=== PATIENT | female | born 1955 | race Caucasian/White ===

== ENCOUNTER 2020-06-07 17:19 | Inpatient (IN) | payer MEDICARE ==
[~2020-06-07] VITALS: Ht 152.4 cm; Wt 56.1 kg
--- NOTE | ~2020-06-07 | EMS ---
[address] [address] EMS Patient Care Report Name: ALYSA LANDRUM Room: [address] ADM IN [facility].#: [id number] Admission: 06/07/20 Attend Phys: Davi Lopez MD Discharge: Date of : 55 Report #: [id number] THIS REPORT FOR: //name// Report Transmitted: 06/08/2020 02:17 EMS Care Summary [facility] [place] Incident [id number] @ 06/07/2020 16:07 Incident Location [address] [place] [address] Patient ALYSA LANDRUM Female, 64 Years 1955 Patient Address [address] [place] [address] Patient History Multiple Sclerosis,Hypertension (HTN), Patient Allergies , Patient Medications , Baclofen, Hydrochlorothiazide (Hctz), Alprazolam, Tramadol, Chief Complaint Wound Disposition Transported No Lights/[place] Dispatch Reason Sick Person Transported To [facility] Narrative [facility] DISPATCHED TO STATED LOCATION FOR FEMALE PT, BED CONFINED, WOUNDS. ON ARRIVAL TO THE SCENE, WE WERE MET AT THE FRONT DOOR BY THE PT'S SON. HE LED US TO A BEDROOM AT THE REAR OF THE HOME. THE PT WAS FOUND SEATED IN A BED. HER WAS IN AN ELECTRIC WHEELCHAIR ON THE SIDE OF THE BED OPPOSITE FROM [address] [address] EMS Patient Care Report Name: ALYSA LANDRUM Room: [address] IN [facility]#: [id number] Admission: 06/07/20 Attend Phys: Davi Lopez MD Discharge: Date of : 55 Report #: [id number] WHERE THE PT WAS SEATED. PT ADVISED THAT SHE HAD NOTICED WOUNDS FORMING ON HER LEGS OVER THE PAST SEVERAL WEEKS, WORSENING UP TO 911 CONTACT. IT WAS NOTED THAT THE BED APPEARED TO HAVE PREVIOUSLY CAUGHT FIRE DUE TO A LIT CIGARETTE, WHICH THE PT CONFIRMED. PT ADVISED THAT HER FALLS ASLEEP WHILE SMOKING, RESULTING IN MULTIPLE BURN KILGORE ON THE BED, WELL THE CARPET SURROUNDING THE WHEELCHAIR. PT WAS MOVED ACROSS THE BED TO THE STAIRCHAIR, WHERE SHE WAS SECURED AND MOVED FROM THE HOUSE. SHE WAS THEN PLACED ON THE STRETCHER AND SECURED FOR TRANSPORT. PT WAS DIFFICULT TO ACCESS DUE TO CLUTTER AND GARBAGE ON THE BED, WELL THE FLOOR SURROUNDING HER SIDE OF THE BED. PT WAS PLACED ON THE STRETCHER, SECURED, AND LOADED FOR TRANSPORT. VITAL SIGNS AND INTERVENTIONS NOTED ELSEWHERE. PT INITIALLY REQUESTED TRANSPORT TO [facility] IN [place], BUT WE WERE PREPARING FOR TRANSPORT, WE HEARD THAT OTHER UNITS WERE BEING DIVERTED FROM THERE. THE PT WAS ADVISED OF THE SITUATION, AND ADVISED THAT TRANSPORT TO [facility] WAS SUITABLE. TRANSPORT WAS UNEVENTFUL, WITH NO CHANGES IN OVERALL CONDITION WHILE EN ROUTE. IN PERSON HANDOFF GIVEN TO THE RECEIVING NURSE INDICATED. PT CARE TRANSFERRED WITHOUT INCIDENT. THE ELDER ABUSE/NEGLECT HOTLINE WAS CONTACTED REGARDING THE LIVING CONDITIONS AND LACK OF CARE PROVIDED TO THE PT GIVEN HER DISABILITY, CONFIRMATION NUMBER [id number]. UNIT IN SERVICE. END OF REPORT ROCÍO CHUA [id number] Initial Vitals @16:16Pain: 08/28, @16:37SpO2: 95, @16:54SpO2: 99, @17:03SpO2: 98, @17:07SpO2: 99, @16:42 @16:38P: 120,R: 18,BP: 157/72, @16:54P: 116,R: 16,BP: 144/74, @17:03P: 113,R: 18,BP: 148/66, @16:38GCS: 15, @16:54GCS: 15, @17:03GCS: 15, Assessments @16:16MENTAL:SKIN:HEENT:LUNG SOUNDS:ABDOMEN:PELVIS//GI:EXTREMITIES:PULSE:NEURO: Impression Malaise Procedures @16:38 cc () Site: Other Peripheral (Not Listed)Response: UnchangedFailed@16:4212-Lead ECGResponse: [place] [address] EMS Patient Care Report Name: ALYSA LANDRUM Room: [address] IN [facility]#: [id number] Admission: 06/07/20 Attend Phys: Davi Lopez MD Discharge: Date of : 55 Report #: [id number] 16:03,Call Received 16:03,Dispatch Notified 16:03,Psap Call 16:07,Dispatched 16:07,En Route 16:14,On Scene 16:16,At Patient 16:16,BP: / M,PULSE: ,RR: R,SPO2: Ox,ETCO2: ,BG: ,PAIN: 3,GCS: , 16:37,BP: / M,PULSE: ,RR: R,SPO2: 95 Ox,ETCO2: ,BG: ,PAIN: ,GCS: , 16:38,BP: 157/72 M,PULSE: 120,RR: 18 R,SPO2: Ox,ETCO2: ,BG: ,PAIN: ,GCS: , 16:38,BP: / M,PULSE: ,RR: R,SPO2: Ox,ETCO2: ,BG: ,PAIN: ,GCS: 15, 16:38, cc Site: Other Peripheral (Not Listed),Response: UnchangedFailed, 16:42,12-Lead ECG,Response: UnchangedSucceeded, 16:42,BP: / M,PULSE: ,RR: R,SPO2: Ox,ETCO2: ,BG: ,PAIN: ,GCS: , 16:46,Depart Scene 16:54,BP: / M,PULSE: ,RR: R,SPO2: 99 Ox,ETCO2: ,BG: ,PAIN: ,GCS: , 16:54,BP: 144/74 M,PULSE: 116,RR: 16 R,SPO2: Ox,ETCO2: ,BG: ,PAIN: ,GCS: , 16:54,BP: / M,PULSE: ,RR: R,SPO2: Ox,ETCO2: ,BG: ,PAIN: ,GCS: 15, 17:03,BP: / M,PULSE: ,RR: R,SPO2: 98 Ox,ETCO2: ,BG: ,PAIN: ,GCS: , 17:03,BP: 148/66 M,PULSE: 113,RR: 18 R,SPO2: Ox,ETCO2: ,BG: ,PAIN: ,GCS: , 17:03,BP: / M,PULSE: ,RR: R,SPO2: Ox,ETCO2: ,BG: ,PAIN: ,GCS: 15, 17:07,BP: / M,PULSE: ,RR: R,SPO2: 99 Ox,ETCO2: ,BG: ,PAIN: ,GCS: , 17:16,At Destination 17:42,Call Closed Disclaimer v1.1 Copyright 2020 [employer] This EMS Care Summary contains data elements from the applicable legal record (which may be displayed differently). It is designed to provide pertinent information for the following purposes: continuity of care, clinical quality, and state data reporting. The complete legal record is available to ED staff and administrators of the receiving hospital in [employer]'s Patient Tracker. All data is provided "as is."
[2020-06-07 17:21] VITALS: BP 126/49
[2020-06-07] MEDS ORDERED: HYDROCHLOROTHIA25 M2 PO ×2 (17:30→21:08)
[2020-06-07] MEDS ORDERED: TRAMADOL 50 MG50 MG PO ×2 (17:31→21:09)
[2020-06-07] MEDS ORDERED: BACLOFEN 10MG T10 MG PO ×2 (17:31→21:08)
[2020-06-07] MEDS ORDERED: NORVASC 2.5 MG2.5 M1 PO ×2 (17:31→21:07)
[2020-06-07] MEDS ORDERED: XANAX 0.5 MG0.5 M1 PO (17:32)
[2020-06-07 18:32] LABS: HEMATOCRIT 40.3 % (37.0-47.0); HEMOGLOBIN 13.7 gm/dL (12.0-15.0); MCH 30.6 pg (26.0-34.0); NUCLEATED RBCS 0 /100WBC; PLATELET COUNT* 341 thou/uL (150-400)
[2020-06-07 18:39] LABS: MCHC 33.9 g/dL (28.0-37.0); MCV 90.2 fL (80.0-100.0); MPV 7.8 fl. (7.2-11.1); RBC 4.47 mil/uL (4.20-5.00); RDW-CV 13.6 % (10.5-14.5); WBC 7.6 thou/uL (4.0-11.0)
[2020-06-07 18:45] LABS: CALCIUM 9.8 mg/dL (8.5-10.1); CREATININE 0.8 mg/dL (0.6-1.3); POTASSIUM 3.3 mmol/L (3.5-5.1)
[2020-06-07 18:50] LABS: ALBUMIN 3.2 g/dL (3.4-5.0); TOTAL BILIRUBIN 0.6 mg/dL (<0.1-1.0); TOTAL PROTEIN 6.9 g/dL (6.4-8.2)
[2020-06-07 18:50] LABS: URINE BILIRUBIN NEGATIVE (Negative); URINE BLOOD 2+ (Negative); URINE CLARITY CLEAR; URINE COLOR YELLOW; URINE GLUCOSE-RANDOM NEGATIVE (Negative); URINE KETONES NEGATIVE (Negative); URINE LEUKOCYTES-REFLEX NEGATIVE (Negative); URINE NITRITE-REFLEX NEGATIVE (Negative); URINE PROTEIN NEGATIVE (Negative); URINE UROBILINOGEN 0.2 E.U./dl (0.2-1.0)
[2020-06-07 18:58] LABS: APTT 26.2 Seconds (25.0-31.3); PROTIME 10.3 Seconds (9.20-11.50)
[2020-06-07 18:59] LABS: SQUAMOUS >10 Many /LPF (0-3)
[2020-06-07 19:00] LABS: BACTERIA-REFLEX >30 Many /HPF (None Seen); CASTS None Seen /LPF (None Seen); CRYSTALS None Seen /LPF (None Seen); MUCUS None Seen strn/LPF (None Seen); URINE RBC 3-10 Few /HPF (0-2); URINE WBC-REFLEX 0-5 Rare /HPF (0-5)
[2020-06-07 19:10] LABS: ABSOLUTE EOSINOPHILS 0.3 thou/uL (0.0-0.7); ABSOLUTE MONOCYTES 0.7 thou/uL (0.0-1.2); ABSOLUTE NEUTROPHILS 4.6 thou/uL (1.6-8.1); PLATELET ESTIMATE ADEQUATE
[2020-06-07 20:40] VITALS: BP 133/55
--- NOTE | 2020-06-07 20:40 | NUR ---
PT ADMITTED TO FLOOR PER CART ACCOMPANIED BY ER STAFF WITH BELONGINGS. ORIENTED TO ROOM AND CALL LITE. PT MOVED PER SLIDING DEVICE FROM CART TO BED. YIN DRAINING YELLOW URINE. WOUNDS TO SACRUM, R ELBOW AND BILATERAL THIGHS. PT UNABLE TO MOVE BLE, MODERATE STRENGTH TO UPPER EXTREMITIES. PT CO GENERALIZED ACHES, SACRAL PAIN. HISTORY OBTIANED AND ASSESSMENT PERFORMED, SEE ADMIT NOTES. PICTURES TO BE TAKEN OF WOUNDS, PT POSITIONED FOR COMFORT WITH WEDGE OFF OF SACRUM AT THIS TIME. REQUESTING SNACK, GIVEN. WILL CONTINUE TO MONITOR AND PROVIDE CARES NEEDED. CALL LITE IN EASY REACH, BED ALARM ON FOR SAFETY.
[2020-06-07 20:47] VITALS: BP 131/49
[2020-06-07] MEDS ORDERED: ALPRAZOLAM XR3 MG PO (21:06)
[2020-06-07] MEDS ORDERED: XANAX 0.5 MG0.5 MG PO (21:10)
[2020-06-07] MEDS ORDERED: NEURONTIN300 MG PO ×2 (21:52→22:24)
[2020-06-07] MEDS ORDERED: VITAMIN D31250 MC1 PO (21:53)
[2020-06-08 04:22] LABS: HEMOGLOBIN 12.4 gm/dL (12.0-15.0); MCH 30.2 pg (26.0-34.0); MCHC 33.5 g/dL (28.0-37.0); MPV 7.5 fl. (7.2-11.1); RBC 4.11 mil/uL (4.20-5.00); RDW-CV 13.2 % (10.5-14.5); WBC 6.3 thou/uL (4.0-11.0)
[2020-06-08 04:44] LABS: CALCIUM 9.2 mg/dL (8.5-10.1); CREATININE 0.6 mg/dL (0.6-1.3); MAGNESIUM 1.6 mg/dL (1.8-2.4); POTASSIUM 3.7 mmol/L (3.5-5.1)
--- NOTE | 2020-06-08 04:57 | NUR ---
PT HAS SLEPT WELL SINCE SETTLING IN AFTER ADMIT. K REPLACED, AM LABS DRAWN. HOME MEDS RESTARTED AND GIVEN ORDERED. LAC IVF INFUSING PER PUMP. YIN DRAINING YELLOW URINE WITH SMALL AMOUNT BLOOD STREAK AT TIMES. TOLERATING FOOD AND FLUIDS AT HS. R ELBOW WOUND DRSG CDI. BUTTOCK WOUND CLEANSED AND REDRESSED AFTER ADMISSION ALSO. BRIAN THIGH WOUNDS EMIGDIO, PHOTOGRAPHS TAKEN. PT TURNED AND REPOSITIONED Q2 HOURS AND PRN FOR SKIN CARE AND COMFORT, HEELS ELEVATED OFF OF BED ON PILLOW. PT TAKES PILLS WHOLE WITH WATER. ABLE TO USE CALL LITE AND MAKE NEEDS KNOWN. CM TO CONSULT WELL WOUND CARE AND DR SANTIAGO. AOX4, PLEASANT.BEDREST.
[2020-06-08 07:40] VITALS: BP 120/58
--- NOTE | 2020-06-08 09:08 | NUR ---
CM SPOKE TO THE PT TO COMPLETE CM ASSESSMENT. PT A&O. PT INFORMS THAT SHE IS NORMALLY INDEPENDENT WITH ADL'S 'I SPONGE BATH AND DRESS MYSELF, BUT COULD USE A LITTLE MORE HELP AT HOME'. PT RESIDES AT HOME WITH SPOUSE AND SON. PT INFORMS THAT HER SON 'IS THERE AND CAN HELP US AT HOME. MY CANT REALLY HELP ME HE HAS A LOT OF PAIN'. PT HAS 0 HX OF HH. PT HAS 0 HX OF SNF, BUT INFORMS THAT HER MOTHER RESIDES AT [facility]. CM WILL REMAIN AVAILABLE TO ASSIST AND FOLLOW NEEDED.
[2020-06-08 15:52] VITALS: BP 132/65
--- NOTE | 2020-06-08 18:35 | NUR ---
PATIENT RESTING IN BED. PATIENT DENIES ANY PAIN. PATIENT HAS PRESSURE WOUNDS TO BUTTOCKS AND RIGHT ELBOW. PATIENT SEEN BY SURGERY THIS AFTERNOON. PATIENT HAD DRESSING TO WOUNDS CHANGED TODAY. PATIENT HAS BEEN REPOSTIONED WHILE IN BED. PATIENT HAS GOOD APPETTIE. PATIENT DENIES ANY NEEDS AT THIS TIME. CALL LIGHT WITHIN REACH.
[2020-06-08 20:00] VITALS: BP 140/66
--- NOTE | 2020-06-09 05:05 | NUR ---
PATIENT AWAKE UNTIL AROUND 2AM. PT TURNED Q2H PER PROTOCAL. PT GIVEN TORADOL AND BACLOFEN FOR MS PAIN. PT WITH YIN TO DEPENDENT DRAIN WITH YELLOW URINE. PT HAS DSG ON COCCYX AND RT ELBOW C/D/I. PT ALSO HAS WOUNDS ALL OVER LEGS OPEN TO AIR; NO OZING NOTED. PT WITH SALINE LOCK IN LT AC. FREQUENTLY USED ITEMS AND CALL LIGHT WITHIN REACH. SIDERAILS UPX3 AND BED ALARM ON. WILL CONTINUE TO MONITOR.
[2020-06-09 05:19] LABS: HEMATOCRIT 36.2 % (37.0-47.0); HEMOGLOBIN 12.1 gm/dL (12.0-15.0); MCH 30.1 pg (26.0-34.0); MCHC 33.6 g/dL (28.0-37.0); MCV 89.7 fL (80.0-100.0); RBC 4.03 mil/uL (4.20-5.00); RDW-CV 13.9 % (10.5-14.5); WBC 9.7 thou/uL (4.0-11.0)
[2020-06-09 05:30] LABS: ALBUMIN 2.6 g/dL (3.4-5.0); CALCIUM 9.1 mg/dL (8.5-10.1); CREATININE 0.6 mg/dL (0.6-1.3); MAGNESIUM 1.8 mg/dL (1.8-2.4); POTASSIUM 3.4 mmol/L (3.5-5.1); TOTAL BILIRUBIN 0.4 mg/dL (<0.1-1.0)
[2020-06-09 17:23] VITALS: BP 135/60
--- NOTE | 2020-06-09 18:46 | NUR ---
PATIENT CURRENTLY LYING IN BED RESTING. Q2 TURNS COMPLETED THIS SHIFT. PICTURES TAKEN OF PATIENT'S WOUNDS THAT WERE PRESENT UPON ADMISSION AND PLACED IN CHART. PATIENT HAS DENIED ANY NEW PAIN DURING SHIFT. CALL LIGHT AND FREQUENTLY USED ITEMS WITHIN REACH.
[2020-06-09 20:04] VITALS: BP 108/52
--- NOTE | 2020-06-10 05:09 | NUR ---
PT A&OX4, VSS ON ROOM AIR, URINARY CATHETER IN PLACE, PT TURNED Q2H, PT SLEEPING WELL. HOURLY ROUNDINGS COMPLETE, WILL CONTINUE TO MONITOR.
[2020-06-10 08:00] VITALS: BP 126/57
--- NOTE | 2020-06-10 15:09 | NUR ---
WOUND NURSE: PATIENT SEEN TO ADDRESS CIRCIFORM SKIN LESIONS PRESENT ON SACRAL AREA, BILATERAL LEGS, AND RIGHT ELBOW. PATIENT WITH 10+ CIRCIFORM LESIONS ALL APPROX 2MM THICK, RED NONGRANULATING TISSUE IN THE WOUND BEDS, YELLOW EXUDATE, NO PERIWOUND REDESS, WARMTH, OR INDURATION. SACRAL WOUND WITH 3 OPENINGS, ALL WITH RED GRANULATION TISSUE, SEROUSANGUINOUS DRAINAGE, NO PERIOWUND REDNESS, WARMTH, OR INDURATON. PATIENT REPORTING THAT THE LESIONS HAVE BEEN OCCURRING FOR THE PAST 2 MONTHS AND SEEM TO START BLISTERS THAT BREAK OPEN AND DRAIN. PATIENT ALSO WITH SOME SCARS ALSO NOTED. SACRAL WOUND MEASURES 5 X 8 X 0.2 CM. BLE WOUNDS VARY IN SIZE UP TO APPROX 1.5 CM DIAMETERA. CLEANSED SACRAL WOUND WITH SOAP AND WATER, RINSED, THEN PATTED DRY. APPLIED SKIN PREP TO PERIWOUND, THEN COVERED WITH AQUACEL AG AND SECURED IN PLACE USING SURESITE TRANSPARENT DRESSING. THIS WOUND IS VERY CLOSE TO ANAL ORIFACE MAKING A SEAL CHALLENGING. PATIENT IS AWAITING PHYSICIAN TO BIOPSY THE OTHER WOUNDS LATER TODAY, SO POSTPONED APPLYING DRESSINGS AT THIS TIME. RECOMMEND IODOSORB GEL TO EACH LESION, THEN COVERING WITH GAUZE OR BORDERED FOAM DRESSING, AND CHANGE DRESSINGS 3X/WEEK AND PRN. PATIENT INSTRUCTED ON MEASIURES TO PROMOTE HEALING AND PREVENT COMPLICATIONS. PATIENT STATES SHE UNDERSTANDS.
[2020-06-10 16:26] VITALS: BP 126/61
--- NOTE | 2020-06-10 19:54 | NUR ---
Pt remained A&O x4. Pt turned q2 hours. Pt given meds per AUG. Pt's wounds dressed by wound care nurse. Surgery in to do biopsy of sore on rt leg. Stitches in place. Pt tolerated well. Pt pleasant with staff. Fall precautions in place.
[2020-06-10 20:00] VITALS: BP 124/62
--- NOTE | 2020-06-11 06:06 | NUR ---
ASSUMED PATIENT CARE AT 1900. ALERT AND ORIENTED TIMES FOUR. CAN BE VERY NEEDY AT TIMES. MINOR COMPLAINTS OF PAIN, CONTROLLED WITH ORAL MEDICATION. IV PATENT TO FLUSHES. INVENTORY CONTROLLER AND HOURLY ROUNDING COMPLETED CHARTED.
[2020-06-11 06:18] LABS: HEPATITIS B SURFACE AG Negative (Negative)
--- NOTE | 2020-06-11 11:08 | NUR ---
WOUND NURSE: FOLLOWED UP WITH PATIENT THIS MORNING. PATIENT WAS SEEN BY SURGERY YESTERDAY PER HER NURSE, BRANT AND BX WAS PERFORMED. BLE WOUNDS HAD NOT BEEN DRESSED. PATIENTS WOUND WERE TREATED BY THIS NURSE A RESULT. THE DRESSING ON SACRUM WAS NOT INTACT SO REPLACED THIS AND ADDED FOAM LAYER UNDER THE TRANSPARENT FOR ADDED ABSORPTION. ALSO CHANGED THE DRESSING TO THE RIGHT ELBOW. THIS WAS TOLERATED WELL BY THE PATIENT.
--- NOTE | 2020-06-11 11:20 | NUR ---
DISCUSSED DISCHARGE PLANNING WITH PT. SHE SEEMED REALISTIC,SAYING I KNOW I NEED TO GO SOMEWHERE. MY AND SON CANNOT TAKE CARE OF ME AT HOME. SHE SAID HAS OSTEO ARTHRITIS AND CANNOT HELP HER MUCH. HE HAS A WALKER AND SCOOTER. HER 26 Y.O.SON LIVES WITH THEM. SHE SAID HE LIVES RENT FREE IN EXCHANGE FOR HELPING THEM. SHE SAID HE REALLY DOESN'T DO MUCH FOR THEM. GAVE HER A LIST OF FACILITIES THAT CONTRACT WITH HER INSURANCE. TOLD HER SHE WOULD GO SKILLED FIRST TO GET HER LEGS HEALED UP. SHE WANTS TO TALK WITH . CALL FROM [facility] [phone]. SHE HAD RECEIVED A HOTLINE CALL ON PT. SHE SAID WALKS BENT OVER, THERE IS NO WAY HE COULD ASSIST PT. BED WHERE PT.STAYS APPEARED IF THE MATTRESS CAUGHT FIRE. HER SAID HE HAS BEEN KNOW AT TIMES TO FALL SLEEP WITH A CIGARETTE IN HIS HAND. INFORMED HER ON POC TO DISCHARGE TO SNF. WILL UPDATE HER WITH NAME OF SNF WHEN KNOWN.
[2020-06-11 16:07] LABS: ANA INTERPRETATION Negative (())
[2020-06-11 16:24] VITALS: BP 109/49
--- NOTE | 2020-06-11 20:10 | NUR ---
Pt A&O x4 for entire shift. Pt pleasant with staff. Meds given per AUG. Pt given bed bath today. Pt's barlow removed and purewick in place instead. Pt turned Q2. Vital signs stable. Pt does express concern about going home. Pt states "no one at home can take care of me". Fall precautions in place.
--- NOTE | 2020-06-11 20:16 | NUR ---
Pt given ativan Q4 per AUG. Pt's breaths getting shallower. Pt's granddaughter in room for large portion of day and left around 1710. Pt's given updates via phone several times today. Pt at 1800. Pt pronounced by [address] Lopez notified. Pt's contacted. [facility] contacted. Pt does not qualify to be a donor. Charge nurse notified. Pt's deciding which home to use and will call back.
[2020-06-11 20:30] VITALS: BP 111/60
--- NOTE | 2020-06-12 06:15 | NUR ---
PATIENT HAS SLEPT WELL THROUGHOUT MOST OF THE NIGHT. VSS ON RA. MEDICATIONS GIVEN ORDERED AND CHARTED. PATIENT HAS REMAINED BEDREST. PURE WIK IN PLACE WITH YOKASTA COLORED URINE. DRESSING TO WOUNDS ARE C/D/I. PATIENT TURNED EVERY 2HRS. FALL PRECAUTIONS IN PLACE AND HOURLY ROUNDS MADE. WILL CONTINUE WITH PLAN OF CARE AND NURSING TO MONITOR.
[2020-06-12] MEDS ORDERED: XANAX 0.5 MG0.5 M1 PO (08:18)
[2020-06-12] MEDS ORDERED: METOPROLOL TART25 MG PO (08:18)
[2020-06-12] MEDS ORDERED: CEFUROXIME250 MG PO (08:18)
[2020-06-12] MEDS ORDERED: THERA M PLUS T1 EAC2 PO (08:18)
[2020-06-12] MEDS ORDERED: PHENAZOPYRIDIN100 M1 PO (08:18)
[2020-06-12] MEDS ORDERED: TRAMADOL 50 MG50 MG PO (08:18)
[2020-06-12] MEDS ORDERED: IBUPROFEN 200200 M1 PO (08:18)
[2020-06-12] MEDS ORDERED: MELATONIN5 M1 PO (08:18)
--- NOTE | 2020-06-12 14:00 | NUR ---
DISCUSSED FACILITIES WITH PT. SHE SAID WANTED TO SPEAK WITH CM. ATTEMTPED TO CALL HIM. LEFT VM FOR HIM TO RETURN MY CALL. MAY REFERRALS TO [facility]. TRIED TO SUGGEST FACILITIES THAT WOULD POSSIBLY HAVE LTC AVAILABILITY WHEN SNF TIME IS OVER.
[2020-06-12 16:46] VITALS: BP 117/50
--- NOTE | 2020-06-12 19:53 | NUR ---
Pt remained A&O x4 for entire shift. Pt is pleasant with staff. Pt's vital signs stable. Pt had 2 small BM today that were soft and formed. Pt complained of cramping in stomach and given prn medication. Pt losing appetite due to cramping in stomach stating that eating causes the cramping. Pt to be D/C to SNF when placement is found. Fall precautions in place.
[2020-06-12 21:00] VITALS: BP 110/43
--- NOTE | 2020-06-13 06:54 | NUR ---
PATIENT HAS SLEPT WELL THROUGHOUT MOST OF THE NIGHT. VSS ON RA. MEDICATIONS GIVEN ORDERED AND CHARTED. ASSESSMENT CHARTED. WOUND TO COCCYX CLEANSED AND NEW DRESSING APPLIED. PATIENT HAD BOWEL MOVEMENTS X 2 THAT WERE SOFT/BROWN. LEDA CARE PERFORMED. PATIENT REPOSITIONED EVERY 2HRS AND PRN. PURE WIK IN PLACE TO SUCTION. IV IN LEFT AC-SL PATIENT INSTRUCTED TO USE CALL LIGHT WHEN NEEDING ASSISTANCE. HOURLY ROUNDS MADE. WILL CONTINUE WITH PLAN OF CARE AND NURSING TO MONITOR.
[2020-06-13 07:30] VITALS: BP 117/61
[2020-06-13 08:40] VITALS: BP 117/61
--- NOTE | 2020-06-13 11:00 | NUR ---
[facility] CALLED AND SAID THEY CAN ACCEPT PT.TO THEIR SNF UNIT AT THEIR FACILITY. HE WILL CALL PT.TO DISCUSS. PT.TRYING TO CALL TO DISCUSS. MESSAGE LEFT FOR ALSO BY CM TO RETURN OUR CALL. FAXED DISCHARGE ORDERS TO [facility].
--- NOTE | 2020-06-13 14:48 | NUR ---
PATIENT WILL BE PICKED UP BY [facility] AT 1600 TODAY. AND SON HAVE BEEN NOTIFIED. PROVIDED PATIENT WITH A JACKET, PANTS AND SHOES.
--- NOTE | 2020-06-13 18:02 | NUR ---
PATIENT DRESSINGS CHANGED AND PHOTOS TAKEN OF WOUNDS. IV DC'D. TURNED Q2. DRESSING ORDERS AND REPORT GIVEN TO BLANKA ABDI AT [facility] WHERE PATIENT DISCHARGED TO. PRN TRAMADOL GIVEN X 1 FOR LEG PAIN THIS SHIFT WITH GOOD RELIEF NOTED. PATIENT TAKEN TO [facility] AT THIS TIME VIA STRETCHER WITH ALL BELONGINGS.
== END 2020-06-13 18:09 | DRG 592 ==
LOC: M.ERS 17:19 → M.3W 18:44 → M.TBA-ER 18:44 → M.3W 21:01
PROVIDERS: Personal Emergency Response Attendant; ADMIT Internal Medicine; ATTEND Internal Medicine
PROC: 0JBN0ZX Excision of Right Lower Leg Subcutaneous Tissue and Fascia, Open Approach, Diagnostic (ICD-10-PCS; principal; 2020-06-10)
DX: L89.612 Pressure ulcer of right heel, stage 2 (principal); G82.50 Quadriplegia, unspecified; E44.1 Mild protein-calorie malnutrition; L89.302 Pressure ulcer of unspecified buttock, stage 2; L89.622 Pressure ulcer of left heel, stage 2; N30.91 Cystitis, unspecified with hematuria; G35 Multiple sclerosis; I10 Essential (primary) hypertension; L89.159 Pressure ulcer of sacral region, unspecified stage; L89.019 Pressure ulcer of right elbow, unspecified stage; F41.1 Generalized anxiety disorder; G89.29 Other chronic pain; M26.609 Unspecified temporomandibular joint disorder, unspecified side; E87.6 Hypokalemia; E53.8 Deficiency of other specified B group vitamins; E67.3 Hypervitaminosis D; Z74.01 Bed confinement status; Z88.0 Allergy status to penicillin; Z88.5 Allergy status to narcotic agent; Z68.24 Body mass index [BMI] 24.0-24.9, adult; Z20.828 Contact with and (suspected) exposure to other viral communicable diseases